=== PATIENT | male | born 1930 | race Caucasian/White ===

== ENCOUNTER 2017-03-02 20:32 | Inpatient (IN) | payer MEDICARE, OTHER ==
[~2017-03-02] VITALS: Ht 175.3 cm; Wt 75.4 kg
[~2017-03-02 20:32] MED LIST: CARV6.2512 PO; CEFD300C37 PO; DOCU-131 PO; DOXY100T10 PO; FURO-93 PO; HYDR-3237 PO; INDA2.5T PO; LEVO137T2 PO; LISI5TAB7 PO; MAGN400T26 PO; NITR1PAT26 TD; POTA10CA PO; POTA20PA25 PO; SIMV40TA3 PO; TAMS-11 PO; TRAM50TA2 PO; WARF5TAB PO; [UNRECOGNIZED DRUG - OTHER] PO
[2017-03-02] MEDS ORDERED: MORPHINE SULFATE 4 MG/ML, 1ML ONE (20:52)
[2017-03-02] MEDS ORDERED: ONDANSETRON 2MG/ML, 2ML ONE (20:52)
[2017-03-02] MEDS ORDERED: SODIUM CHLORIDE FLUSH 10ML SYR IVF ONE (21:00)
[2017-03-02] MEDS ORDERED: MORPHINE SULFATE 4 MG/ML, 1ML IVPush PRN (21:00)
[2017-03-02] MEDS ORDERED: ONDANSETRON 2MG/ML, 2ML IVPush ONE (21:00)
[2017-03-02 21:19] LABS: BASOPHILS # (AUTO) 0.03 x10^3/uL (0-0.1); BASOPHILS % (AUTO) 1 % (0-1); EOSINOPHILS % (AUTO) 4 % (1-7); LYMPHOCYTES # (AUTO) 0.85 x10^3/uL (1-3.4); LYMPHOCYTES % (AUTO) 17 % (22-44); MD NO; MEAN CORPUSCULAR HEMOGLOBIN 33.5 pg (27.5-34.5); MEAN CORPUSCULAR VOLUME 98.7 fL (81-97); MEAN PLATELET VOLUME 8.3 fL (7.4-10.4); MONOCYTES # (AUTO) 0.38 x10^3/uL (0.2-0.8); MONOCYTES % (AUTO) 8 % (2-9); NEUTROPHILS # (AUTO) 3.46 x10^3/uL (1.8-6.8); NEUTROPHILS % (AUTO) 70 % (42-75); PLATELET COUNT 115 x10^3/uL (130-400); RED BLOOD COUNT 3.88 x10^6/uL (4.38-5.82); RED CELL DISTRIBUTION WIDTH 14.2 % (9.4-14.8)
[2017-03-02 21:29] LABS: INTERNATIONAL NORMALIZED RATIO 2.29 (0.93-1.1); PROTHROMBIN TIME 23.2 Seconds (9.6-11.5)
[2017-03-02 21:31] LABS: ALBUMIN 3.4 g/dL (3.4-5.0); ANION GAP 7 mmol/L (5-15); CALCIUM 8.8 mg/dL (8.5-10.1); CHLORIDE 108 mmol/L (98-107); CREATININE 1.34 mg/dL (0.7-1.3)
[2017-03-02] MEDS ORDERED: PROPOFOL 10 MG/ML, 20ML IVPush ONE (22:00)
[2017-03-02] MEDS ORDERED: PROPOFOL 10 MG/ML, 20ML ONE (22:05)
[2017-03-02] MEDS ORDERED: FUROSEMIDE 40 MG/4 ML IV ONE (23:00)
[2017-03-02] MEDS ORDERED: FUROSEMIDE 40 MG/4 ML ONE (23:04)
[2017-03-03] MEDS ORDERED: BISACODYL 10 MG SUPP PR PRN
[2017-03-03] MEDS ORDERED: ONDANSETRON 2MG/ML, 2ML IVPush PRN
[2017-03-03] MEDS ORDERED: ACETAMINOPHEN 325 MG TABLET PO PRN
[2017-03-03] MEDS ORDERED: POLYETHYLENE GLYCOL 17 GM PACKET PO PRN
[2017-03-03 00:47] VITALS: BP 163/67
[2017-03-03 01:41] LABS: FOLATE LEVEL > 20.0 ng/mL (3.1-17.5)
[2017-03-03] MEDS: MAGNESIUM OXIDE 400 MG TABLET PO SCH ×3 (02:46→20:24)
[2017-03-03] MEDS: TAMSULOSIN 0.4 MG CAP.ER.24H PO SCH ×3 (02:46→20:24)
[2017-03-03 05:39] LABS: MEAN CORPUSCULAR HEMOGLOBIN 33.4 pg (27.5-34.5); MEAN CORPUSCULAR HGB CONC 33.9 g/dL (33.2-36.2); MEAN CORPUSCULAR VOLUME 98.6 fL (81-97); MEAN PLATELET VOLUME 8.5 fL (7.4-10.4); PLATELET COUNT 94 x10^3/uL (130-400); RED BLOOD COUNT 3.72 x10^6/uL (4.38-5.82); RED CELL DISTRIBUTION WIDTH 14.3 % (9.4-14.8)
[2017-03-03 05:41] LABS: CHLORIDE 109 mmol/L (98-107)
[2017-03-03 05:42] VITALS: BP 122/62
[2017-03-03] MEDS: CARVEDILOL 6.25 MG TABLET PO SCH ×2 (05:44→17:50)
[2017-03-03 05:52] LABS: ALANINE AMINOTRANSFERASE 22 U/L (12-78); ALKALINE PHOSPHATASE 74 U/L (45-117); ANION GAP 5 mmol/L (5-15); BILIRUBIN,TOTAL 1.4 mg/dL (0.2-1.0); CALCIUM 8.8 mg/dL (8.5-10.1); CREATININE 1.12 mg/dL (0.7-1.3); TOTAL PROTEIN 5.9 g/dL (6.4-8.2)
[2017-03-03 05:54] LABS: BASOPHILS # (AUTO) 0.01 x10^3/uL (0-0.1); BASOPHILS % (AUTO) 0 % (0-1); EOSINOPHILS # (AUTO) 0.16 x10^3/uL (0-0.4); EOSINOPHILS % (AUTO) 3 % (1-7); LYMPHOCYTES # (AUTO) 1.01 x10^3/uL (1-3.4); LYMPHOCYTES % (AUTO) 18 % (22-44); MD SCAN; MONOCYTES % (AUTO) 9 % (2-9); NEUTROPHILS # (AUTO) 3.99 x10^3/uL (1.8-6.8); NEUTROPHILS % (AUTO) 70 % (42-75)
[2017-03-03] MEDS ORDERED: FUROSEMIDE 20 MG/2 ML IV SCH (07:30)
[2017-03-03 07:59] LABS: INTERNATIONAL NORMALIZED RATIO 2.25 (0.93-1.1); PROTHROMBIN TIME 22.8 Seconds (9.6-11.5)
[2017-03-03 08:47] VITALS: BP 115/63
[2017-03-03] MEDS ORDERED: FUROSEMIDE 40 MG/4 ML IV ONE (10:30)
[2017-03-03] MEDS ORDERED: METOLAZONE 2.5 MG TABLET PO ONE (10:30)
[2017-03-03] MEDS: SODIUM CHLORIDE FLUSH 10ML SYR IVF SCH ×3 (10:51→20:24)
[2017-03-03] MEDS: POTASSIUM CHLORIDE 10 MEQ TABLET.ER PO SCH (10:52)
[2017-03-03] MEDS: LISINOPRIL 5 MG TABLET PO SCH (10:52)
[2017-03-03] MEDS: LEVOTHYROXINE 137 MCG TABLET PO SCH (10:53)
[2017-03-03] MEDS: SENNA/DOCUSATE TABLET PO SCH (10:53)
[2017-03-03] MEDS: SIMVASTATIN 40 MG TABLET PO SCH (10:54)
[2017-03-03 17:21] VITALS: BP 112/55
[2017-03-03] MEDS: WARFARIN 5 MG TABLET PO-COUM SCH (17:51)
[2017-03-03 19:02] VITALS: BP 106/56
[2017-03-04 01:17] VITALS: BP 102/49
[2017-03-04 06:18] VITALS: BP 102/54
[2017-03-04] MEDS: CARVEDILOL 6.25 MG TABLET PO SCH ×2 (06:21→18:39)
[2017-03-04 06:24] LABS: ANION GAP 6 mmol/L (5-15); CALCIUM 8.7 mg/dL (8.5-10.1); CHLORIDE 105 mmol/L (98-107); CREATININE 1.32 mg/dL (0.7-1.3)
[2017-03-04 07:02] VITALS: BP 99/56
[2017-03-04] MEDS: SIMVASTATIN 40 MG TABLET PO SCH (10:08)
[2017-03-04] MEDS: LEVOTHYROXINE 137 MCG TABLET PO SCH (10:08)
[2017-03-04] MEDS: SODIUM CHLORIDE FLUSH 10ML SYR IVF SCH (10:08)
[2017-03-04] MEDS: POTASSIUM CHLORIDE 10 MEQ TABLET.ER PO SCH (10:09)
[2017-03-04] MEDS: LISINOPRIL 5 MG TABLET PO SCH (10:09)
[2017-03-04] MEDS: MAGNESIUM OXIDE 400 MG TABLET PO SCH (10:09)
[2017-03-04] MEDS: SENNA/DOCUSATE TABLET PO SCH (10:09)
[2017-03-04] MEDS: TAMSULOSIN 0.4 MG CAP.ER.24H PO SCH (10:09)
[2017-03-04 12:52] VITALS: BP 103/56
[2017-03-04] MEDS: WARFARIN 5 MG TABLET PO-COUM SCH (18:40)
== END 2017-03-04 16:00 | disposition home or self-care (01) | DRG 291 ==
LOC: ED 23:02 → EDIP 23:40 → 4WST 03-03 00:31
PROVIDERS: ADMIT Surgery; ATTEND Internal Medicine
PROC: 0RSJXZZ Reposition Right Shoulder Joint, External Approach (ICD-10-PCS; principal; 2017-03-02)
DX: I11.0 Hypertensive heart disease with heart failure (principal); J18.9 Pneumonia, unspecified organism; D68.69 Other thrombophilia; D69.6 Thrombocytopenia, unspecified; I48.2 Chronic atrial fibrillation; D53.9 Nutritional anemia, unspecified; S43.014A Anterior dislocation of right humerus, initial encounter; E03.9 Hypothyroidism, unspecified; W01.0XXA Fall on same level from slipping, tripping and stumbling without subsequent striking against object, initial encounter; I25.10 Atherosclerotic heart disease of native coronary artery without angina pectoris; I50.23 Acute on chronic systolic (congestive) heart failure; E78.5 Hyperlipidemia, unspecified; I25.2 Old myocardial infarction; G89.11 Acute pain due to trauma; G89.29 Other chronic pain; N40.0 Benign prostatic hyperplasia without lower urinary tract symptoms; Z79.01 Long term (current) use of anticoagulants; Z82.3 Family history of stroke; Z85.828 Personal history of other malignant neoplasm of skin; Z95.0 Presence of cardiac pacemaker; Z95.1 Presence of aortocoronary bypass graft; Z90.49 Acquired absence of other specified parts of digestive tract; Z88.2 Allergy status to sulfonamides; Z91.041 Radiographic dye allergy status; Y93.89 Activity, other specified; Y92.89 Other specified places as the place of occurrence of the external cause
CPT/HCPCS: 23650; 36415; 70450; 71010; 72125; 80048; 80053; 82040; 82607; 82746; 83735; 83880; 85025; 85610; 85730; 93005; 96374; 96375; 99152; 99153; J1940; J2405; J2704